=== PATIENT | female | born 1950 | race Caucasian/White ===

== ENCOUNTER 2021-03-01 14:57 | Outpatient (CLI) | payer MEDICARE | END 2021-03-01 14:58 | disposition home or self-care (01) | LOC: CSHMAMMO 14:57 | PROVIDERS: ATTEND Obstetrics & Gynecology | DX: Z12.31 Encounter for screening mammogram for malignant neoplasm of breast (principal) | CPT/HCPCS: 77063; 77067 ==

== ENCOUNTER 2022-03-02 13:01 | Outpatient (CLI) | payer MEDICARE | END 2022-03-02 13:02 | disposition home or self-care (01) | LOC: CSHMAMMO 13:01 | PROVIDERS: ATTEND Obstetrics & Gynecology | DX: Z12.31 Encounter for screening mammogram for malignant neoplasm of breast (principal) | CPT/HCPCS: 77063; 77067 ==

== ENCOUNTER 2023-05-23 13:36 | Outpatient (CLI) | payer MEDICARE | END 2023-05-23 13:37 | disposition home or self-care (01) | LOC: CSHMAMMO 13:36 | PROVIDERS: ATTEND Obstetrics & Gynecology | DX: Z12.31 Encounter for screening mammogram for malignant neoplasm of breast (principal) | CPT/HCPCS: 77063; 77067 ==